=== PATIENT | male | born 1980 | race Caucasian/White ===

== ENCOUNTER 2021-07-12 17:31 | Emergency (ER) | payer OTHER ==
[~2021-07-12] VITALS: Ht 185.4 cm; Wt 86.2 kg
[2021-07-12 17:40] VITALS: BP 122/74
[2021-07-12] MEDS ORDERED: HYDROCODON-ACE1 EAC7 PO (18:25)
== END 2021-07-12 18:32 | disposition home or self-care (01) ==
LOC: M.ERS 17:31
DX: S93.401A Sprain of unspecified ligament of right ankle, initial encounter (principal); F12.90 Cannabis use, unspecified, uncomplicated; W22.8XXA Striking against or struck by other objects, initial encounter; Y93.89 Activity, other specified; Y92.89 Other specified places as the place of occurrence of the external cause; Y99.8 Other external cause status